=== PATIENT | female | born 1980 | race Caucasian/White ===

== ENCOUNTER 2020-08-05 20:42 | Inpatient (IN) | payer OTHER ==
[2020-08-05 20:47] VITALS: BMI 23.8
--- OUTSIDE RECORDS SUMMARY | 2020-08-05 20:59 | XMS ---
:1980 Author Organization [facility] Support Name Relationship Address Phone [facility] Unavailable [address] [place] [place] [address] JOSE ALFREDO CHAVIS MTH Unavailable [facility] Unavailable [address] [place] [place] [address] FABY LARSON SISTER [id number] [place] [address] Re-disclosure Warning The records that you are about to access may contain information from federally- assisted alcohol or drug abuse programs. If such information is present, then the following federally mandated warning applies: This information has been disclosed to you from records protected by federal confidentiality rules (42 CFR part 2). The federal rules prohibit you from making any further disclosure of this information unless further disclosure is expressly permitted by the written consent of the person to whom it pertains or as otherwise permitted by 42 CFR part 2. A general authorization for the release of medical or other information is NOT sufficient for this purpose. The Federal rules restrict any use of the information to criminally investigate or prosecute any alcohol or drug abuse patient.The records that you are about to access may contain highly sensitive health information, the redisclosure of which is protected by Article 27-F of the [facility] Public Health law. If you continue you may haveaccess to information: Regarding HIV / AIDS; Provided by facilities licensed or operated by the [facility] Office of Mental Health; or Provided by the [facility] Office for People With Developmental Disabilities. If such information is present, then the following [facility] mandated warning applies: This information has been disclosed to you from confidential records which are protected by state law. State law prohibits you from making any further disclosure of this information without the specific written consent of the person to whom it pertains, or as otherwise permitted by law. Any unauthorized further disclosure in violation of state law may result in a fine or skilled nursing sentence or both. A general authorization for the release of medical or other information is NOT sufficient authorization for further disclosure. Insurance Providers Payer name Policy type Policy ID Covered Covered democrat's Policy P leanne / Coverage democrat ID relationship to You Inf ormation type you HIP EXHIBITION CARVER [id number] SP [id number] HMO EMBLEM [id number] Self [id number] HEALTH EMBLEM [id number] Self [id number] HEALTH HIP CAP [id number] Self [id number] Results ID Date Data Source [id number] 07/17/2020 09:54:00 PM EDT [facility] Name Value Range Interpretation Code Description Data Adilene rce(s) Supporting Document(s ) SARS-COV-2 [facility] QL JOSY+PROBE This lab was ordered by SRI LEE and reported by JIMMY PIRES. Procedure
[2020-08-05] MEDS ORDERED: SODIUM CHLORIDE 0.9% 500 ML INFUS.BAG IV ONE (21:15)
--- NOTE | 2020-08-05 21:30 | PDOC ---
Attending Attestation - Resident Resident Name: Isai Balderrama - ED Attending Attestation I have performed the following: I have examined & evaluated the patient, The case was reviewed & discussed with the resident, I agree w/resident's findings & plan - HPI HPI: 08/06/20 00:21 Pt states that she has a hx of fibroids and her blood hb fell in the past from 12 to 6 or 7 and she was transfused 2x in the past. Now again with a feeling of weakness, and so she came to the ER for evaluation. - Physicial Exam PE: 08/06/20 00:25 Pt has pale skin and yellow palms and tinge to her skin. Pt has tachy HR lungs CTA B abd soft NT ND no flank pain no neuro findings - Medical Decision Making 08/05/20 23:07 7.6 HB; HCT 24 Pt will be transfused 08/06/20 00:27 Pt has normal labs otherwise 08/06/20 00:27 Pt is not and INR is normal. 08/06/20 00:35 UA NOT INFECTEDL ONLY BLOOD; LIKELY VAGINAL CONTAMINATION Discharge - Discharge Information Problems reviewed: Yes Clinical Impression/Diagnosis: Symptomatic anemia, Episode of heavy vaginal bleeding Condition: Guarded - Follow up/Referral - Patient Discharge Instructions - Post Discharge Activity
--- NOTE | 2020-08-05 21:52 | PDOC ---
History of Present Illness - General Chief Complaint: Vaginal Bleeding Stated Complaint: VAGINAL BLEEDING/LIGHTHEADED Time Seen by Provider: 08/05/20 20:59 History Source: Patient Exam Limitations: No Limitations - History of Present Illness Initial Comments: 08/05/20 21:36 39F PMH fibroids, abnormal uterine bleeding requiring transfusions x2 (basilio Kimball) presenting with heavy vaginal bleeding since 08/01/20 and development of dizziness, weakness, and exertional SOB today. States she is soaking through 7 super tampons daily for the last 3 days. Bleeding today was heavy in the morning but no longer as heavy. 08/01/20 was the start of her menses. Pt was previously on OCPs in May but experienced irregular menses and stopped; now taking iron only. Had menses type lower abdominal pain for the past few days but pt states this has since resolved. She states she appears paler than normal. para 2. Denies f/c, cp, n/v/d, dysuria. 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 Past History - Medical History Allergies/Adverse Reactions: Allergies Allergy/AdvReac Type Severity Reaction Status Date / Time No Known Allergies Allergy Verified 08/05/20 20:47 Home Medications: Ambulatory Orders NK [No Known Home Medication] 08/05/20 Anemia: Yes COPD: No - Surgical History Abdominal Surgery: Yes Appendectomy: Yes - Reproductive History Is Patient Now?: No - Psycho-Social/Smoking History Smoking History: Never smoked - Substance Abuse Hx (Audit-C & DAST Scrn) How often the patient has a drink containing alcohol: Monthly or less Number of drinks the patient has on a typical day: 1 or 2 How often the patient has six or more drinks on one occasion: Never Score: In Men: 4 or > Positive; In Women: 3 or > Positive: 1 Screen Result (Pos requires Nsg. Audit-10AR): Negative In the last yr the pt used illegal drug/Rx for NonMed reason: No Score: Yes response is considered Positive: 0 Screen Result (Positive result requires Nsg. DAST-10): Negative Review of Systems - Review of Systems Comments:: CONSTITUTIONAL: Denies F / C HEENT: + lightheadedness RESP: + CHAO CARD: Denies chest pain GI: Denies N / V / D : + vaginal bleeding. Denies dysuria NEURO: Denies numbness, tingling, weakness MSK: Denies back pain SKIN: Denies rashes *Physical Exam - Vital Signs Last Vital Signs Temp Pulse Resp BP Pulse Ox 98.1 F 105 H 18 110/67 99 08/05/20 20:44 08/05/20 20:44 08/05/20 20:44 08/05/20 20:44 08/05/20 20:44 - Physical Exam GEN: Pale-appearing, NAD, AAOx3. HEENT: NC/AT, EOMI, Normal voice. Supple neck w/ FROM. CV: S1/S2, RRR, no m/r/g LUNG: CTAB, no wheezes, crackles, rales, rhonchi. GI: Mild lower abd TTP but overall soft, ndnt, +BS, no guarding, no rebound. No masses. Neg CVAT b/l. PELVIC: Exam chaperoned by BISHNU Cameron. There is external blood but no discharge or atrophy on inspection. Cervical os not visualized but no active bleeding or discharge seen on speculum exam. On bimanual exam, no CMT, no adnexal fullness, there was uterine tenderness. MSK: No obvious deformities of all extremities. SKIN: general pallor, warm, dry, no rashes appreciated. PSYCH: Normal mood and affect. NEURO: Moving all extremities well. ED Treatment Course - LABORATORY CBC & Chemistry Diagram: 08/05/20 21:40 08/05/20 21:40 Medical Decision Making - Medical Decision Making 39F h/o fibroids (dx 2018) and abnormal uterine bleeding requiring transfusion presenting with heavy vaginal bleeding x 5 days now with dizziness, weakness, and exertional SOB. Uterine tenderness on exam with blood in the vault and external genitalia but no active bleed. Likely uterine bleed 2/2 fibroids. eval for possible though unlikely. - CBC, CMP, Coags, T&S, - UA, UC - likely she will need transfusion 08/05/20 23:30 labs reviewed 1 U pRBC ordered for sx anemia message left with answering service of pt's OB Dr. Forbes [phone] 08/06/20 00:06 signed out to PM team for further management Discharge - Discharge Information Problems reviewed: Yes Clinical Impression/Diagnosis: Symptomatic anemia, Episode of heavy vaginal bleeding Condition: Guarded - Admission Yes - Follow up/Referral - Patient Discharge Instructions - Post Discharge Activity
[2020-08-05 22:04] LABS: BASO % 0.3 % (0-2.0); EOS % 1.5 % (0-4.5); HEMATOCRIT 24.9 % (32.4-45.2); HEMOGLOBIN 7.6 GM/dL (10.7-15.3); MCH 21.5 pg (25.7-33.7); MCHC 30.5 g/dl (32.0-36.0); MEAN CELL VOLUME 70.5 fl (80-96); MEAN PLT VOLUME 7.6 fl (7.5-11.1); NEUT % 62.2 % (42.8-82.8); PLATELET COUNT 365 K/MM3 (134-434); RBC 3.52 M/mm3 (3.60-5.2); RDW 26.9 % (11.6-15.6); WHITE BLOOD COUNT 7.5 K/mm3 (4.0-10.0)
[2020-08-05 22:20] LABS: INR 0.99 (0.83-1.09); PROTHROMBIN TIME (PATIENT) 12.2 SEC (9.7-13.0)
[2020-08-05 22:22] LABS: ACTIVATED PTT 25.9 SECONDS (25.2-36.5)
[2020-08-05 22:23] LABS: POTASSIUM 4.1 mmol/L (3.5-5.1)
[2020-08-05 22:25] LABS: CALCIUM 8.6 mg/dL (8.5-10.1)
[2020-08-05 22:26] LABS: ALBUMIN 3.5 g/dl (3.4-5.0); BLOOD UREA NITROGEN 13.2 mg/dL (7-18)
[2020-08-05 22:29] LABS: CREATININE 0.5 mg/dL (0.55-1.3)
[2020-08-05 22:30] LABS: BILIRUBIN,TOTAL 0.2 mg/dL (0.2-1); TOT PROT 7.8 g/dl (6.4-8.2)
[2020-08-05 22:55] LABS: ANISOCYTOSIS 1+; MACROCYTOSIS 0; OVALOCYTE 1+; PLATELET ESTIMATE NORMAL
[2020-08-05 23:49] LABS: EPI CELLS 29 /uL (0-25.1); HYALINE CASTS 1 /uL (0-3.1); PH,URINE 6.5 (5.0-8.0); URINE APPEARANCE CLEAR; URINE BACTERIA 435 /uL (0-1359); URINE BILIRUBIN NEGATIVE (NEGATIVE); URINE COLOR YELLOW; URINE GLUCOSE (UA) NEGATIVE (NEGATIVE); URINE KETONE NEGATIVE (NEGATIVE); URINE LEUK ESTERASE NEGATIVE (NEGATIVE); URINE NITRITE NEGATIVE (NEGATIVE); URINE PROTEIN NEGATIVE (NEGATIVE); URINE RBC 99 /uL (0-23.9); URINE WBC 6 /uL (0-25.8)
--- NOTE | 2020-08-06 00:02 | PDOC ---
*Physical Exam - Vital Signs Last Vital Signs Temp Pulse Resp BP Pulse Ox 98.1 F 105 H 18 110/67 99 08/05/20 20:44 08/05/20 20:44 08/05/20 20:44 08/05/20 20:44 08/05/20 20:44 ED Treatment Course - LABORATORY CBC & Chemistry Diagram: 08/05/20 21:40 08/05/20 21:40 - ADDITIONAL ORDERS Additional order review: Laboratory Results 08/05/20 08/05/20 08/05/20 23:10 22:29 22:07 PT with INR INR PTT (Actin FS) Sodium Potassium Chloride Carbon Dioxide Anion Gap BUN Creatinine Est GFR (CKD-EPI)AfAm Est GFR (CKD-EPI)NonAf Random Glucose Calcium Total Bilirubin AST ALT Alkaline Phosphatase Total Protein Albumin Serum , Qual Urine Color Yellow Urine Appearance Clear Urine pH 6.5 Ur Specific [place] 1.016 Urine Protein Negative Urine Glucose (UA) Negative Urine Ketones Negative Urine Blood 3+ H Urine Nitrite Negative Urine Bilirubin Negative Urine Urobilinogen 1.0 Ur Leukocyte Esterase Negative Urine WBC (Auto) 6 Urine RBC (Auto) 99 Urine Casts (Auto) 1 U Epithel Cells (Auto) 29 Urine Bacteria (Auto) 435 Anti-A Titer Cancelled Blood Type Cancelled A POSITIVE Antibody Screen Cancelled Crossmatch See Detail 08/05/20 08/05/20 08/05/20 21:40 21:40 21:40 PT with INR INR PTT (Actin FS) Sodium 140 Potassium 4.1 Chloride 108 H Carbon Dioxide 26 Anion Gap 6 L BUN 13.2 Creatinine 0.5 L Est GFR (CKD-EPI)AfAm 141.30 Est GFR (CKD-EPI)NonAf 121.92 Random Glucose 102 Calcium 8.6 Total Bilirubin 0.2 AST 21 ALT 19 Alkaline Phosphatase 65 Total Protein 7.8 Albumin 3.5 Serum , Qual Negative Urine Color Urine Appearance Urine pH Ur Specific [place] Urine Protein Urine Glucose (UA) Urine Ketones Urine Blood Urine Nitrite Urine Bilirubin Urine Urobilinogen Ur Leukocyte Esterase Urine WBC (Auto) Urine RBC (Auto) Urine Casts (Auto) U Epithel Cells (Auto) Urine Bacteria (Auto) Anti-A Titer Blood Type A POSITIVE Antibody Screen Negative Crossmatch See Detail 08/05/20 21:40 PT with INR 12.20 INR 0.99 PTT (Actin FS) 25.9 Sodium Potassium Chloride Carbon Dioxide Anion Gap BUN Creatinine Est GFR (CKD-EPI)AfAm Est GFR (CKD-EPI)NonAf Random Glucose Calcium Total Bilirubin AST ALT Alkaline Phosphatase Total Protein Albumin Serum , Qual Urine Color Urine Appearance Urine pH Ur Specific [place] Urine Protein Urine Glucose (UA) Urine Ketones Urine Blood Urine Nitrite Urine Bilirubin Urine Urobilinogen Ur Leukocyte Esterase Urine WBC (Auto) Urine RBC (Auto) Urine Casts (Auto) U Epithel Cells (Auto) Urine Bacteria (Auto) Anti-A Titer Blood Type Antibody Screen Crossmatch 08/05/20 21:40 RBC 3.52 L MCV 70.5 L MCHC 30.5 L RDW 26.9 H MPV 7.6 Neutrophils % 62.2 Lymphocytes % 30.0 Monocytes % 6.0 Eosinophils % 1.5 Basophils % 0.3 - Medications Given in the ED: ED Medications Discontinued Medications Generic Name Dose Route Start Last Admin Trade Name Freq PRN Reason Stop Dose Admin Sodium Chloride 1,000 ml 08/05/20 21:15 08/05/20 21:57 Normal Saline - IV 08/05/20 21:16 1,000 ml ONCE ONE Administration Medical Decision Making - Medical Decision Making Patient signed out from Dr. Balderrama Call to Dr. Farr, ; awaiting callback 08/05/20 23:[address] Adis Raphael who accepted patient for admission under Dr. Kalyee Ventura 08/06/20 00:14 Discharge - Discharge Information Problems reviewed: Yes Clinical Impression/Diagnosis: Symptomatic anemia, Episode of heavy vaginal bleeding Condition: Guarded - Admission Yes - Follow up/Referral Referrals: Alfredo Ovalle [Primary Care Provider] - - Patient Discharge Instructions - Post Discharge Activity
--- OUTSIDE RECORDS SUMMARY | 2020-08-06 00:25 | XMS ---
:1980 Author Organization [facility] Support Name Relationship Address Phone [facility] Unavailable [address] [facility] [address] JOSE ALFREDO CHAVIS MTH Unavailable [facility] Unavailable [address] [facility] [place] [address] FABY LARSON SISTER [id number] [place] [address] Re-disclosure Warning The records that you are [...] is protected by Article 27-F of the [facility] Public Health law. If you continue you may haveaccess to information: Regarding HIV / AIDS; Provided by facilities licensed or operated by the [facility] Office of Mental Health; or Provided by the [facility] Office for People With Developmental Disabilities. If such information is present, then the following [facility] mandated warning applies: This information has been [...] law may result in a fine or halfway sentence or both. A general authorization for the release of medical or other information is NOT sufficient authorization for further disclosure. Insurance Providers Payer name Policy type Policy ID Covered Covered libertarian's Policy P leanne / Coverage libertarian ID relationship to You Inf ormation type you HIP SOFTWARE SECURITY ARCHITECT [id number] SP [id number] HMO EMBLEM [id number] Self [id number] HEALTH EMBLEM [id number] Self [id number] HEALTH HIP CAP [id number] Self [id number] Results ID Date Data Source [id number] 07/17/2020 09:54:00 PM EDT [facility] Name Value Range Interpretation Code Description Data Adilene rce(s) Supporting Document(s ) SARS-COV-2 [facility] QL JOSY+PROBE This lab was ordered by SRI LEE and reported by [facility]. Procedure
--- NOTE | 2020-08-06 00:39 | PN ---
Teaching Attending Note Name of Resident: Adis Dunlap ATTENDING PHYSICIAN STATEMENT I saw and evaluated the patient. I reviewed the resident's note and discussed the case with the resident. I agree with the resident's findings and plan as documented. SUBJECTIVE: 39yoF with history of uterine fibroids s/p leiomyomectomy 09/2019 and abnormal uterine bleeding and anemia requiring transfusion who presents with dizziness, weakness, and dyspnea on exertion x3 days. Patient reports LMP 08/01 with ongoing vaginal bleeding today which has since stopped while in the ED. Denies chest pain, nausea, vomiting, syncope, cough, fever/chills. Notes general pallor. Plan was for TVUS after the myomectomy but this has been delayed due to COVID. She was previously on OCPs but stopped it a couple of months ago due to irregular menses. Takes iron supplement regularly. Patient was mildly tachcyardic to 105 on arrival to the ED, BP 110/67. Labs notable for Hgb 7.6. 1U PRBC started due to symptomatic anemia. ED attempted to contact patient's outpatient outbound sales agent. OBJECTIVE: Vital Signs - 24 hr 08/05/20 20:44 Temperature 98.1 F Pulse Rate 105 H Respiratory 18 Rate Blood Pressure 110/67 O2 Sat by Pulse 99 Oximetry (%) EXAM Gen: awake, alert, NAD CV: RRR, no MRG Resp: CTAB Abd: mild tenderness to palpation suprapubic area Derm: Generalized pallor Psych: AOx3 Laboratory Results - last 24 hr 08/05/20 08/05/20 08/05/20 21:40 21:40 21:40 WBC 7.5 RBC 3.52 L Hgb 7.6 L Hct 24.9 L MCV 70.5 L MCH 21.5 L MCHC 30.5 L RDW 26.9 H Plt Count 365 MPV 7.6 Absolute Neuts (auto) 4.7 Neutrophils % 62.2 Lymphocytes % 30.0 Monocytes % 6.0 Eosinophils % 1.5 Basophils % 0.3 Nucleated RBC % 0 Hypochromia 1+ Platelet Estimate Normal Polychromasia 1+ Anisocytosis 1+ Microcytosis 1+ Macrocytosis 0 Ovalocytes 1+ PT with INR 12.20 INR 0.99 PTT (Actin FS) 25.9 Sodium Potassium Chloride Carbon Dioxide Anion Gap BUN Creatinine Est GFR (CKD-EPI)AfAm Est GFR (CKD-EPI)NonAf Random Glucose Calcium Total Bilirubin AST ALT Alkaline Phosphatase Total Protein Albumin Serum , Qual Negative Urine Color Urine Appearance Urine pH Ur Specific [place] Urine Protein Urine Glucose (UA) Urine Ketones Urine Blood Urine Nitrite Urine Bilirubin Urine Urobilinogen Ur Leukocyte Esterase Urine WBC (Auto) Urine RBC (Auto) Urine Casts (Auto) U Epithel Cells (Auto) Urine Bacteria (Auto) Anti-A Titer Blood Type Antibody Screen Crossmatch 08/05/20 08/05/20 08/05/20 21:40 21:40 22:07 WBC RBC Hgb Hct MCV MCH MCHC RDW Plt Count MPV Absolute Neuts (auto) Neutrophils % Lymphocytes % Monocytes % Eosinophils % Basophils % Nucleated RBC % Hypochromia Platelet Estimate Polychromasia Anisocytosis Microcytosis Macrocytosis Ovalocytes PT with INR INR PTT (Actin FS) Sodium 140 Potassium 4.1 Chloride 108 H Carbon Dioxide 26 Anion Gap 6 L BUN 13.2 Creatinine 0.5 L Est GFR (CKD-EPI)AfAm 141.30 Est GFR (CKD-EPI)NonAf 121.92 Random Glucose 102 Calcium 8.6 Total Bilirubin 0.2 AST 21 ALT 19 Alkaline Phosphatase 65 Total Protein 7.8 Albumin 3.5 Serum , Qual Urine Color Urine Appearance Urine pH Ur Specific [place] Urine Protein Urine Glucose (UA) Urine Ketones Urine Blood Urine Nitrite Urine Bilirubin Urine Urobilinogen Ur Leukocyte Esterase Urine WBC (Auto) Urine RBC (Auto) Urine Casts (Auto) U Epithel Cells (Auto) Urine Bacteria (Auto) Anti-A Titer Blood Type A POSITIVE A POSITIVE Antibody Screen Negative Crossmatch See Detail 08/05/20 08/05/20 22:29 23:10 WBC RBC Hgb Hct MCV MCH MCHC RDW Plt Count MPV Absolute Neuts (auto) Neutrophils % Lymphocytes % Monocytes % Eosinophils % Basophils % Nucleated RBC % Hypochromia Platelet Estimate Polychromasia Anisocytosis Microcytosis Macrocytosis Ovalocytes PT with INR INR PTT (Actin FS) Sodium Potassium Chloride Carbon Dioxide Anion Gap BUN Creatinine Est GFR (CKD-EPI)AfAm Est GFR (CKD-EPI)NonAf Random Glucose Calcium Total Bilirubin AST ALT Alkaline Phosphatase Total Protein Albumin Serum , Qual Urine Color Yellow Urine Appearance Clear Urine pH 6.5 Ur Specific [place] 1.016 Urine Protein Negative Urine Glucose (UA) Negative Urine Ketones Negative Urine Blood 3+ H Urine Nitrite Negative Urine Bilirubin Negative Urine Urobilinogen 1.0 Ur Leukocyte Esterase Negative Urine WBC (Auto) 6 Urine RBC (Auto) 99 Urine Casts (Auto) 1 U Epithel Cells (Auto) 29 Urine Bacteria (Auto) 435 Anti-A Titer Cancelled Blood Type Cancelled Antibody Screen Cancelled Crossmatch See Detail ASSESSMENT AND PLAN: 39yoF with history of uterine fibroids s/p leiomyomectomy and abnormal uterine bleeding and anemia requiring transfusion 2018 who presents with symptomatic anemia. Symptomatic acute blood loss anemia secondary to abnormal uterine bleeding Bleeding stopped while in the ED Reports baseline hgb around 10 Feels better after transfusion, lightheadedness has resolved - 1U PRBC - rpt H/H after transfusion - check iron panel, continue iron supplementation - TVUS - patrol sergeant consult DVT ppx: SCD
--- NOTE | 2020-08-06 00:55 | HP ---
CHIEF COMPLAINT: Abnormal uterine bleeding, fatigue, and SOB PCP: Yamile HISTORY OF PRESENT ILLNESS: Ms. Betancur is a 39F 0 Para 2 w a h/o fibroids, abnormal uterine bleeding requiring transfusions x2 (the Jigar) who arrived to the emergency department after experiencing episodes of shortness of breath with walking, fatigue, numbness and tingling in her hands and feet with heavy vaginal bleeding for 5 days. The patient reports that she has experieced a similar episode in August where she was diagnosed with fibroids and were removed accordingly. The patient was then placed on OCP in october of 2019. She endorses that the OCPs have not done much to reduce the heavy flow of her menstruation but were regulated. The patient's last normal menstrual period was in april and has been irregular since. She states she has ceased taking her OCP in May stating that her periods were not regulated anymore. The patient reports that she has been experiencing lower abdominal pain, dizziness, phenotypic pallor, shortness of breath upon ambulating and numbness in her hands and feet. The patient denies fever, chills, gi changes, chest pain, nausea or vomiting. ER course was notable for: (1) x 1 transfusion of PRBC Recent Travel: denies PAST MEDICAL HISTORY: as above PAST SURGICAL HISTORY: as above Social History: Smoking:denies Alcohol: socially Drugs: denies Allergies No Known Allergies Allergy (Verified 08/05/20 20:47) HOME MEDICATIONS: Home Medications Medication Instructions Recorded NK [No Known Home Medication] 08/05/20 REVIEW OF SYSTEMS As above PHYSICAL EXAMINATION Vital Signs - 24 hr 08/05/20 20:44 Temperature 98.1 F Pulse Rate 105 H Respiratory 18 Rate Blood Pressure 110/67 O2 Sat by Pulse 99 Oximetry (%) GENERAL: Awake, alert, and fully oriented, in no acute distress. HEAD: Normal with no signs of trauma. LUNGS: Breath sounds equal, clear to auscultation bilaterally. No wheezes, and no crackles. No accessory muscle use. HEART: Regular rate and rhythm, normal S1 and S2 without murmur, rub or gallop. ABDOMEN: Soft, Lower abdominal tenderness not distended, normoactive bowel sounds, no guarding, no rebound, no masses. No hepatomegaly or splenomegaly. LOWER EXTREMITIES: 2+ pulses, warm, well-perfused. No calf tenderness. No peripheral edema. Laboratory Results - last 24 hr 08/05/20 08/05/20 08/05/20 21:40 21:40 21:40 WBC 7.5 RBC 3.52 L Hgb 7.6 L Hct 24.9 L MCV 70.5 L MCH 21.5 L MCHC 30.5 L RDW 26.9 H Plt Count 365 MPV 7.6 Absolute Neuts (auto) 4.7 Neutrophils % 62.2 Lymphocytes % 30.0 Monocytes % 6.0 Eosinophils % 1.5 Basophils % 0.3 Nucleated RBC % 0 Hypochromia 1+ Platelet Estimate Normal Polychromasia 1+ Anisocytosis 1+ Microcytosis 1+ Macrocytosis 0 Ovalocytes 1+ PT with INR 12.20 INR 0.99 PTT (Actin FS) 25.9 Sodium Potassium Chloride Carbon Dioxide Anion Gap BUN Creatinine Est GFR (CKD-EPI)AfAm Est GFR (CKD-EPI)NonAf Random Glucose Calcium Total Bilirubin AST ALT Alkaline Phosphatase Total Protein Albumin Serum , Qual Negative Urine Color Urine Appearance Urine pH Ur Specific [place] Urine Protein Urine Glucose (UA) Urine Ketones Urine Blood Urine Nitrite Urine Bilirubin Urine Urobilinogen Ur Leukocyte Esterase Urine WBC (Auto) Urine RBC (Auto) Urine Casts (Auto) U Epithel Cells (Auto) Urine Bacteria (Auto) Anti-A Titer Blood Type Antibody Screen Crossmatch 08/05/20 08/05/20 08/05/20 21:40 21:40 22:07 WBC RBC Hgb Hct MCV MCH MCHC RDW Plt Count MPV Absolute Neuts (auto) Neutrophils % Lymphocytes % Monocytes % Eosinophils % Basophils % Nucleated RBC % Hypochromia Platelet Estimate Polychromasia Anisocytosis Microcytosis Macrocytosis Ovalocytes PT with INR INR PTT (Actin FS) Sodium 140 Potassium 4.1 Chloride 108 H Carbon Dioxide 26 Anion Gap 6 L BUN 13.2 Creatinine 0.5 L Est GFR (CKD-EPI)AfAm 141.30 Est GFR (CKD-EPI)NonAf 121.92 Random Glucose 102 Calcium 8.6 Total Bilirubin 0.2 AST 21 ALT 19 Alkaline Phosphatase 65 Total Protein 7.8 Albumin 3.5 Serum , Qual Urine Color Urine Appearance Urine pH Ur Specific [place] Urine Protein Urine Glucose (UA) Urine Ketones Urine Blood Urine Nitrite Urine Bilirubin Urine Urobilinogen Ur Leukocyte Esterase Urine WBC (Auto) Urine RBC (Auto) Urine Casts (Auto) U Epithel Cells (Auto) Urine Bacteria (Auto) Anti-A Titer Blood Type A POSITIVE A POSITIVE Antibody Screen Negative Crossmatch See Detail 08/05/20 08/05/20 22:29 23:10 WBC RBC Hgb Hct MCV MCH MCHC RDW Plt Count MPV Absolute Neuts (auto) Neutrophils % Lymphocytes % Monocytes % Eosinophils % Basophils % Nucleated RBC % Hypochromia Platelet Estimate Polychromasia Anisocytosis Microcytosis Macrocytosis Ovalocytes PT with INR INR PTT (Actin FS) Sodium Potassium Chloride Carbon Dioxide Anion Gap BUN Creatinine Est GFR (CKD-EPI)AfAm Est GFR (CKD-EPI)NonAf Random Glucose Calcium Total Bilirubin AST ALT Alkaline Phosphatase Total Protein Albumin Serum , Qual Urine Color Yellow Urine Appearance Clear Urine pH 6.5 Ur Specific [place] 1.016 Urine Protein Negative Urine Glucose (UA) Negative Urine Ketones Negative Urine Blood 3+ H Urine Nitrite Negative Urine Bilirubin Negative Urine Urobilinogen 1.0 Ur Leukocyte Esterase Negative Urine WBC (Auto) 6 Urine RBC (Auto) 99 Urine Casts (Auto) 1 U Epithel Cells (Auto) 29 Urine Bacteria (Auto) 435 Anti-A Titer Cancelled Blood Type Cancelled Antibody Screen Cancelled Crossmatch See Detail ASSESSMENT/PLAN: Ms. Betancur is a 39F 0 Para 2 w a h/o fibroids, abnormal uterine bleeding requiring transfusions x2 (the Jigar) who arrived to the emergency department after experiencing episodes of shortness of breath with walking, fatigue, numbness and tingling in her hands and feet with heavy vaginal bleeding for 5 days. #Symptomatic anemia secondary to abnormal vaginal bleeding - possible result of remnant uterine fibroids - Ferritin panel - iron panel - tibc - Suggest 600mg Ibuprofen daily since study show benefit in abnormal uterine bleeding, will defer to OBGYN - monitor H/H - Consult OBGYN (Eugenio) - resume oral iron pills - consider IV venofer if anemia remains unresolved #Dispo - Med/surg #FEN - 1.5 L in ED given - If pressures remain low after txfx then give L - monitor lytes - regular diet #DVT ppx -SCDs due to active bleeding #advanced directive - full code ATTENDING PHYSICIAN STATEMENT I saw and evaluated the patient. I reviewed the resident's note and discussed the case with the resident. I agree with the resident's findings and plan as documented. SUBJECTIVE: OBJECTIVE: ASSESSMENT AND PLAN:
[2020-08-06 04:39] LABS: BASO % 0.2 % (0-2.0); EOS % 1.9 % (0-4.5); HEMATOCRIT 26.7 % (32.4-45.2); HEMOGLOBIN 8.2 GM/dL (10.7-15.3); LYMPH % 39.5 % (8-40); MCH 22.8 pg (25.7-33.7); MCHC 30.8 g/dl (32.0-36.0); MEAN CELL VOLUME 73.9 fl (80-96); MEAN PLT VOLUME 7.8 fl (7.5-11.1); NEUT % 50.4 % (42.8-82.8); PLATELET COUNT 313 K/MM3 (134-434); RBC 3.61 M/mm3 (3.60-5.2); RDW 27.6 % (11.6-15.6); WHITE BLOOD COUNT 7.9 K/mm3 (4.0-10.0)
[2020-08-06] MEDS ORDERED: IBUPROFEN 600 MG TABLET (FP) PO SCH (10:00)
[2020-08-06] MEDS ORDERED: IBUPROFEN 600 MG TABLET (FP) PO ONE (10:13)
[2020-08-06] MEDS ORDERED: IRON SUCROSE INJECTION 200 MG in SODIUM CHLORIDE 90 ML IVPB ONE (13:00)
--- NOTE | 2020-08-06 13:17 | PN ---
Teaching Attending Note Name of Resident: Fredy Rouse ATTENDING PHYSICIAN STATEMENT I saw and evaluated the patient. I reviewed the resident's note and discussed the case with the resident. I agree with the resident's findings and plan as documented. SUBJECTIVE: seen around 8:30 am No fever or chills. No abd pain. cont to have vaginal bleed but less than before. cont to have light headedness with ambulation but much better. No CP or SOB . but complains of base line CHAO. takes iron supp daily OBJECTIVE: NAD, awake, alert, cooperative CV: RRR ,no MRG Lungs: CTAB Ext : No edema or erythema on upper or lower extremities. Abd: soft, ND, TTP in suprapubic area, nl BS, no guarding ASSESSMENT AND PLAN: 30 y/o lady with h/o iron def anemia and vaginal bleed due to fibroids, s/p myomectomy in 11/07 who presented with light headedness and fatigue and was found to have symptomatic iron def anemia 1- Acute on chronic blood loss anemia. 2- Vaginal bleed 3- chronic iron def anemia Plan: - Hb improved after 1 unit of RBC , but she is still light headed. will give another unit of RBC - iron studies show very depleted iron stores despite being on po iron - will give IV iron x 1 - refer to heme as out pt for full course of iron infusion - At dc will place on TID iron supp - TVUS reviewed. fibroids and possible intra-uterine polyps - awaiting [facility] eval for ? hormonal treatment. dispo: possible dc later today
--- NOTE | 2020-08-06 19:00 | DS ---
Physical Exam: SUBJECTIVE: Patient seen and examined. No fever or chills. No abd pain. Cont to have vaginal bleed but less than before. Continues to have light-headedness with ambulation but much improved. Complains of base line CHAO and takes iron supp daily for her AUB but recently stopped her OCP. OBJECTIVE: Vital Signs Period Temp Pulse Resp BP Sys/[place] Pulse Ox Last 24 Hr 98.1 F-98.3 F 68-105 18-20 89-124/55-75 98-100 PHYSICAL EXAM NAD, awake, alert, cooperative today. Dr. Barbosa present at bedside as pt sees him for neurology CV: RRR ,no MRG Lungs: CTAB/l no wheezes or crackles noted. Ext : No edema or erythema on upper or lower extremities. Abd: soft, ND, TTP in suprapubic area, nl BS, no guarding LABS Laboratory Results - last 24 hr HOSPITAL COURSE: Date of Admission:08/06/20 This is a 30 y/o lady with a h/o iron def anemia and vaginal bleed due to fibroids, s/p myomectomy in 11/07 who presented with light headedness and fatigue and was found to have symptomatic iron def anemia 1- Acute on chronic blood loss anemia 2/2 Abnormal uterine bleeding 2- Chronic iron deficiency anemia - Hb improved after 1 unit of RBC to >8, but still light-headed so will give another unit of pRBC - iron studies show very depleted iron stores with ferritin of 7 despite being on po iron so IV iron 300 mg given one time dose. - refer to heme as out pt for full course of iron infusion - At dc placed on TID iron supplementation - TVUS reviewed showing small fibroids and possible intra-uterine polyp, pt told to follow up with [facility] for possible bx - After speaking with Dr. Camacho who is covering SV[facility] today. He recommends not initiating hormonal therapy as she is symptomatically better and given that the bleeding has slightly improved with close follow up to her OBGYN to address the intrauterine polyp and the fibroids. Pt is s/p myomectomy previously but likely she had numerous and only the largest one was removed. Date of Discharge: 08/06/20 Minutes to complete discharge: 30 Discharge Summary Problems reviewed: Yes Reason For Visit: EPISODE OF HEAVY BLEEDING,SECONDARY ANEMIA Current Active Problems Episode of heavy vaginal bleeding (Acute) Symptomatic anemia (Acute) Condition: Improved - Instructions Diet, Activity, Other Instructions: You were admitted for having symptomatic anemia (low blood levels associated with lightheadedness). We gave you Intravenous iron and 2 packed red blood cell transfusions.The cause of your vaginal bleeding is likely due to fibroids found on your uterus given the transvaginal ultrasound found small fibroids and an endometrial polyp lesion that you will need to follow up with your gas specialist after you leave here for possible biopsy or removal. You should follow up with your primary care doctor in 1 week after discharge. You should continue your home medications as prescribed. please follow up withyour SVP doctor in few days You should return to the ER if you have any worsening of your current symptoms like dizziness, shortness of breath, signs of bleeding excessively, nausea, vomiting, abdominal pain. Please make appointment withthe vamp creaser Maxwell Nails or any other vamp creaser for an iron transfusion protocol Referrals: Alfredo Ovalle [Primary Care Provider] - 1 Week Liyah Isbell MD [Staff Physician] - 2 Weeks Tracy Forbes [Non Staff, Medical] - Disposition: HOME - Home Medications Comprehensive Discharge Medication List: Ambulatory Orders Docusate Sodium [Colace -] 100 mg PO DAILY #60 capsule 08/06/20 Ferrous Sulfate [Feosol] 325 mg PO TID #60 tablet 08/06/20 This patient is new to me today: Yes Date on this admission: 08/06/20 Emergency Visit: Yes ED Registration Date: 08/06/20 Care time: The patient presented to the Emergency Department on the above date and was hospitalized for further evaluation of their emergent condition. Critical Care patient: No - Discharge Referral Referred to [facility] Med [facility] No ATTENDING PHYSICIAN STATEMENT I saw and evaluated the patient. I reviewed the resident's note and discussed the case with the resident. I agree with the resident's findings and plan as documented. SUBJECTIVE: OBJECTIVE: ASSESSMENT AND PLAN:
[2020-08-06 19:02] VITALS: BP 105/72; PULSE 82; TEMP 98.2
--- NOTE | 2020-08-07 14:33 | EKG ---
Test Reason : Blood Pressure : / mmHG Vent. Rate : 085 BPM Atrial Rate : 085 BPM P-R Int : 142 ms QRS Dur : 092 ms QT Int : 380 ms P-R-T Axes : 080 020 049 degrees QTc Int : 452 ms NORMAL SINUS RHYTHM INCOMPLETE RIGHT BUNDLE BRANCH BLOCK SEPTAL INFARCT , AGE UNDETERMINED ABNORMAL ECG NO PREVIOUS ECGS AVAILABLE Confirmed by MD CHEEMA MOYSES ([id number]) on 08/07/2020 2:33:08 PM Referred By: Confirmed By:CRISTAL CHEEMA MD
== END 2020-08-06 18:30 | disposition home or self-care (01) | DRG 812 ==
LOC: JER 20:42 → JERBED 08-06 00:16
PROVIDERS: ADMIT Hospitalist; ATTEND Internal Medicine
PROC: 30233N1 Transfusion of Nonautologous Red Blood Cells into Peripheral Vein, Percutaneous Approach (ICD-10-PCS; principal; 2020-08-05)
DX: D50.9 Iron deficiency anemia, unspecified (principal); D62 Acute posthemorrhagic anemia; N93.9 Abnormal uterine and vaginal bleeding, unspecified; D25.9 Leiomyoma of uterus, unspecified
CPT/HCPCS: 36415; 36430; 36511; 76830-TC; 80053; 81003; 82728; 83540; 83550; 84703; 85025; 85610; 85730; 86850; 86900; 86901; 86922; 87086; 93005; 93010; 99285-25; C9803; J1756; P9038; P9058; U0003